=== PATIENT | male | born 1960 | race Caucasian/White ===

== ENCOUNTER 2021-05-22 09:47 | Emergency (ER) | payer OTHER, SELFPAY ==
[2021-05-22 09:58] VITALS: BP 132/87; PULSE 72; RESP 18; TEMP 36.6; O2SAT 100
--- NOTE | 2021-05-22 11:11 | ED.BACK ---
HPI - Back Pain/Injury General Chief Complaint: Extremity Injury, Lower Stated Complaint: Right Hip Pain Source: patient and RN notes reviewed Mode of arrival: ambulatory Limitations: no limitations History of Present Illness HPI Narrative: Patient presents today complaining of right buttock pain and right upper thigh pain x1 week. States pain is a dull ache that is worse with movement. Pain is usually worse in the morning and usually subsides by lunch time; today pain was worse, rates 6/10, and he was unable to tie his shoes due to pain. Patient denies any injury to area. 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 Denies loss of bowel or bladder control; denies numbness or tingling to his lower extremities. Patient states he has been taking Ibuprofen 800mg daily for last two days. Related Data Allergies Allergy/AdvReac Type Severity Reaction Status Date / Time Penicillins Allergy Unknown Unknown Verified 07/28/20 09:03 Review of Systems Review of Systems: CONSTITUTIONAL: Denies body aches, fever, chills, or sweats. EYES: Denies visual changes, redness, or discharge. ENT: Denies rhinorrhea, congestion, sore throat, or otalgia. CARDIOVASCULAR: Denies chest pain, palpitations, or edema. RESPIRATORY: Denies cough or dyspnea. GASTROINTESTINAL: Denies abdominal pain, nausea, vomiting, or diarrhea. GENITOURINARY: Denies dysuria or hematuria; Denies changes in bowel or bladder function. SKIN: Denies rash, itching, or wounds. MUSCULOSKELETAL: + right buttock and right thigh pain; NEUROLOGIC: Denies headache, denies weakness, numbness or tingling to extremities. PSYCH: Denies depression or anxiety. [facility] Past Medical History Medical History BMI 27.0-27.9,adult BMI 28.0-28.9,adult Family History Family History Father Brain aneurysm Meniere disease Mother No problems noted. Sibling No problems noted. Sibling , covid-19 No problems noted. Other Cerebrovascular accident Family history of coronary artery disease Social History Social History (Updated 07/28/20 @ 09:09 by Rina France CMA) Smoking packs per day: 1 Smoking cigarettes per day: 20.0 Years smoked: 30 Smoking pack-years: 30.00 Smoking status: Current every day smoker Tobacco type: cigarettes Second hand tobacco smoke exposure: No Alcohol intake: never Additional occupation/education comments: [employer] Gender identity (if verbalized by the patient): Male Comments At time of signature, I have reviewed and agree with nursing past medical, surgical, social and family history unless otherwise noted. Please see nursing chart for further information. There is no relevant family history pertinent to the presenting complaint. Exam Narrative: GENERAL: Well-appearing, well-nourished, and in no acute distress. HEAD: Normocephalic, atraumatic. EYES: EOMI. No redness or drainage. Conjunctivae normal. ENT: Mucous membranes pink and moist. NECK: Normal AROM. Supple. No lymphadenopathy. CHEST: No respiratory distress. MUSCULOSKELETAL: No vertebral point tenderness, Positive straight leg test with pain to right buttock EXTREMITIES: Positive straight leg test with pain to right buttock, distal sensation intact. Capillary refill normal. Full AROM of the right leg. SKIN: Warm, dry, no rash. Capillary refill normal. Normal skin turgor. NEURO: No focal deficits. Alert and oriented x3. Gait steady. PSYCH: Normal affect. No signs of depression or anxiety. Course Vital Signs Vital signs: Vital Signs Temperature 97.8 F 05/22/21 09:58 Pulse Rate 72 05/22/21 09:58 Respiratory Rate 18 05/22/21 09:58 Blood Pressure 132/87 05/22/21 09:58 Pulse Oximetry 100 05/22/21 09:58 Temperature 97.8 F 05/22/21 09:58 Pul
== END 2021-05-22 11:20 | disposition home or self-care (01) ==
PROVIDERS: Emergency Provider Nurse Practitioner; PCP Family Medicine
DX: M54.31 Sciatica, right side (principal); F17.210 Nicotine dependence, cigarettes, uncomplicated
CPT/HCPCS: 99213; G0463

== ENCOUNTER 2023-07-20 22:38 | Emergency (ER) | payer OTHER, SELFPAY ==
[2023-07-20] VITALS (13 sets, daily range): BP systolic 81–121; BP diastolic 66–75; PULSE 72–81; RESP 14–24; TEMP 36.6; O2SAT 93–100
--- NOTE | ~2023-07-20 | CT_ITS ---
EXAMINATION: CT cervical spine wo con DATE: 07/20/2023 23:53 INDICATION: Neck pain post syncopal episode with fall and head injury TECHNIQUE: Computed tomography (CT) of the cervical spine was performed without intravenous contrast. Automated exposure control and iterative reconstruction technique were employed. The dose-length pro duct was 100.67 mGy-cm. COMPARISON: None FINDINGS: Alignment is normal. Vertebral body heights are normal. No fracture. Moderate osteoarthritis at the a tlantoaxial articulation. There is solid osseous fusion across the bilateral C2-C3 facet and uncovert ebral joints. There is moderate disc height loss with severe bilateral uncovertebral osteoarthritis a t C5-C6. Posterior osteophytes at this level result in mild central canal stenosis. Remaining disc he ights are relatively preserved with additional uncovertebral osteoarthritis, moderate bilaterally at C3-C4 and mild bilaterally at C4-C5. There is severe facet osteoarthritis on the right at C3-C4, C4-C 5, C6-C7 and C7-T1 and on the right at C3-C4. Mild to moderate facet osteoarthritis at the remaining cervical levels. There is also moderate to severe with old bilateral facet osteoarthritis in the visu alized upper thoracic spine. Moderate neural foraminal stenosis bilaterally at C3-C4 and C5-C6 with m ild neural from stenosis at many of the remaining cervical levels. Very small amount of atherosclerot ic calcifications at the bilateral carotid bulbs. Cervical soft tissues are otherwise unremarkable. M ild emphysema and mild atelectasis at the bilateral apices of the lungs. IMPRESSION: 1. Moderate cervical spondylosis. No acute osseous abnormality. Reviewed, dictated and finalized at location A. DATA LEAD
--- NOTE | ~2023-07-20 | CT_ITS ---
EXAMINATION: CT brain wo con DATE: 07/20/2023 23:53 INDICATION: Syncopal episode with fall and head injury TECHNIQUE: Computed tomography (CT) of the head was performed without intravenous contrast. Sagittal and coronal reconstructions were performed. The mA was adjusted according to patient size. Iterative reconstruction technique was employed. The dose-length product was 681.00 mGy-cm. COMPARISON: Brain MR dated 05/10/2011 FINDINGS: No calvarial fracture. No acute intracranial hemorrhage, acute infarction or abnormal extra axial flu id collection. There is mild scattered white matter hypoattenuation consistent with chronic small ves marizol ischemic disease. Ventricles are normal and symmetric. No mass/mass effect. Mucosal thickening t he bilateral ethmoid and right maxillary sinuses. The orbits and mastoid air cells are normal. IMPRESSION: 1. No fracture or acute intracranial process. 2. Mild scattered white matter hypoattenuation consistent with chronic small vessel ischemic disease. Reviewed, dictated and finalized at location A. HER MACHINE OPERATOR IMPRESSION: 1. No fracture or acute intracranial process. 2. Mild scattered white matter hypoattenuation consistent with chronic small ve ssel ischemic disease.
--- NOTE | ~2023-07-20 | XR_ITS ---
EXAMINATION: XR chest 1V portable DATE: 07/21/2023 00:16 INDICATION: Syncope TECHNIQUE: frontal view of the chest was obtained. COMPARISON: Chest radiograph dated 09/04/2017 FINDINGS: Mild streaky bibasilar atelectasis. No pulmonary edema, pleural effusion or pneumothorax. The cardiom ediastinal silhouette is normal. Mild to moderate thoracic spondylosis IMPRESSION: 1. Mild bibasilar atelectasis. Reviewed, dictated and finalized at location A. NESS ACCOUNT SPECIALIST
--- NOTE | 2023-07-20 23:16 | ECG_ITS ---
Measurements Intervals [place] Rate: 75 P: 57 [place]: 149 QRS: 11 QRSD: 102 T: 29 QT: 388 QTc: 436 Interpretive Statements SINUS RHYTHM WITH SINUS ARRHYTHMIA NORMAL ECG NO PREVIOUS ECG AVAILABLE FOR COMPARISON Electronically Signed On 07-21-2023 11:53:50 JUDO TEACHER by Ayad Cazares M.D.
[2023-07-20] MEDS: TETANUS,DIPHTHERIA,AC PERTUSSIS ADULT (0.5 ML) BOOSTRIX IM (23:54)
[2023-07-20] MEDS: SODIUM CHLORIDE 0.9% IV 1,000 ML 999 ML IV CONT (23:54)
[2023-07-20 23:55] LABS: Basophils Percent Auto 0.3 % (0.2-1.2); Eosinophils Absolute Auto 0.2 K/mm3 (0-0.3); Eosinophils Percent Auto 2.9 % (0-4.4); Hematocrit 34.6 % (42.0-52.0); Hemoglobin 11.2 g/dL (14.0-18.0); Immature Granulocyte Absolute 0.01 K/mm3 (0.00-0.031); Immature Granulocyte Percent A 0.2 % (0-0.5); Immature Platelet Fraction Pct 5.2 % (0.9-11.2); Lymphocytes Absolute Auto 1.52 K/mm3 (0.9-3.2); Lymphocytes Percent Auto 26.1 % (18.3-44.2); Mean Corpuscular HGB Conc 32.4 g/dl (32-36); Mean Corpuscular Hemoglobin 32.8 pg (26-34); Mean Corpuscular Volume 101.5 fl (80-100); Monocytes Absolute Auto 0.4 K/mm3 (0.1-0.6); Monocytes Percent Auto 6.2 % (2.6-8.5); Neutrophils Absolute Auto 3.7 K/mm3 (1.3-6.7); Neutrophils Percent Auto 64.3 % (45.5-73.1); Platelet Count Result 140 k/mm3 (150-375); Red Blood Count 3.41 M/mm3 (4.6-6.20); Red Cell Distribution Width 12.6 % (11.5-14.5); White Blood Count 5.8 K/mm3 (4.5-10.0)
[2023-07-21] VITALS (8 sets, daily range): BP systolic 127–135; BP diastolic 81–85; PULSE 68–74; RESP 14–18; O2SAT 94–98
[2023-07-21 00:05] LABS: Alanine Aminotransferase 15 U/L (6-50); Albumin Level 3.7 g/dL (3.5-5.1); Alkaline Phosphatase 69 U/L (38-126); Anion Gap 8 mmol/L (8-16); Aspartate Amino Transferase 22 U/L (17-59); Bilirubin,Total 0.4 mg/dL (0.2-1.3); Blood Urea Nitrogen 14 mg/dL (9-20); Calcium 8.4 mg/dL (8.4-10.2); Carbon Dioxide 24 mmol/L (22-30); Chloride 107 mmol/L (98-107); Estimated CRCL calculation 83 ml/min; Estimated Glomerular Filt Rate > 60; Glucose 127 mg/dL (65-110); Magnesium 1.8 mg/dL (1.6-2.3); Potassium 3.7 mmol/L (3.4-5.0); Sodium 139 mmol/L (137-145)
[2023-07-21 00:06] LABS: Lactic Acid Reflex 1.1 mmol/L (0.7-2.0)
[2023-07-21 00:12] LABS: INR 1.2; Prothrombin Time 15.7 Seconds (11.1-14.7)
[2023-07-21 00:13] LABS: Partial Thromboplastin Time 26.8 SECONDS (22.3-36.8)
[2023-07-21 00:17] LABS: Troponin I < 0.012 ng/mL (0.000-0.034)
--- NOTE | 2023-07-21 01:40 | ED.GENADULT ---
HPI - General Adult General Chief complaint: Fall Stated complaint: FALL, LAC TO HEAD Time Seen by Provider: 07/20/23 22:51 History of Present Illness HPI narrative: sees a 61-year-old gentleman who presents to the emergency department with chief complaint of head injury. Patient reports that he was at a [employer] and had not eaten all day and reports that he got up was feeling lightheaded fell struck his head and has a cut on the back of his head. The patient states he feels achy and feels tired. Patient reports no pain his extremities denies nausea vomiting the patient reports he is unsure of his last tetanus status Related Data Allergies Allergy/AdvReac Type Severity Reaction Status Date / Time Penicillins Allergy Unknown Unknown Verified 06/20/23 14:37 chocolate flavor Allergy Vomiting Verified 07/20/23 22:47 Review of Systems Review of Systems: A 10 system review of systems was completed on the patient and is negative except for what is stated in the HPI. Nursing and ancillary documentation was reviewed. [facility] Past Medical History Medical History BMI 27.0-27.9,adult BMI 28.0-28.9,adult Surgical History Surgical History History of carpal tunnel release Family History Family History Father Brain aneurysm Meniere disease Mother Sibling No problems noted. Sibling , covid-19 No problems noted. Other Cerebrovascular accident Family history of coronary artery disease Social History Social History Smoking packs per day: 1 Smoking cigarettes per day: 20.0 Years smoked: 30 Smoking pack-years: 30.00 Smoking status: Current every day smoker Tobacco type: cigarettes Second hand tobacco smoke exposure: Yes Alcohol intake: never Substance use: current Substance use type: marijuana Lack of Transportation: No Lack of Food: Never True Current Housing: I Have Housing Concerned About Future Housing: No Difficulty Paying Gas/Electric Bills: No Difficulty Paying for Meds: No Education: High School Diploma/GED Difficulty w/ Childcare or Family Care: No Living arrangements: with family Additional living arrangements comments: Occupation/Education: occupation Additional occupation/education comments: [employer] Gender identity (if verbalized by the patient): Male Sexual Orientation (if Verbalized by the Patient): Straight or Heterosexual Spiritual care concerns: No Agree to blood products: Yes Exam Narrative: GENERAL: Well-appearing, well-nourished, and in no acute distress. HEAD: Normocephalic, there is a laceration on the back scalp 2 cm in length. EYES: PERRLA and EOMI. ENT: Nares clear, no rhinorrhea or epistaxis. Mucous membranes moist. NECK: Supple. CHEST: Clear to auscultation. No respiratory distress. HEART: Regular rate and rhythm. No murmur heard. Normal peripheral pulses. ABDOMEN: Soft, nontender, nondistended, normal active bowel sounds. EXTREMITIES: Normal range of motion. No edema. SKIN: Warm, dry, no rash. NEURO: No focal deficits. Alert and oriented x3. PSYCH: Normal mood and affect. Course Vital Signs Vital signs: Vital Signs Temperature 36.6 C 07/20/23 22:37 Pulse Rate 77 07/20/23 22:37 Respiratory Rate 17 07/20/23 22:37 Blood Pressure 99/66 L 07/20/23 22:37 Pulse Oximetry 95 07/20/23 22:37 Oxygen Delivery Room Air 07/20/23 22:37 Temperature 36.6 C 07/20/23 22:37 Pulse Rate 74 07/21/23 01:00 Respiratory Rate 15 07/21/23 01:00 Blood Pressure 127/81 07/21/23 00:46 Pulse Oximetry 94 07/21/23 01:00 Oxygen Delivery Room Air 07/20/23 22:37 Procedures Laceratio
== END 2023-07-21 02:11 | disposition home or self-care (01) ==
PROVIDERS: Emergency Provider Emergency Medicine; PCP Family Medicine
DX: S01.01XA Laceration without foreign body of scalp, initial encounter (principal); R55 Syncope and collapse; Z23 Encounter for immunization; F17.210 Nicotine dependence, cigarettes, uncomplicated; M47.812 Spondylosis without myelopathy or radiculopathy, cervical region; W18.39XA Other fall on same level, initial encounter
CPT/HCPCS: 12001; 36415; 70450; 71045; 72125; 80053; 83605; 83735; 84484; 85025; 85055; 85610; 85730; 90471; 90715; 93005; 96360; 99284; J7030

== ENCOUNTER 2023-08-22 07:00 | Outpatient (NON) | payer OTHER, SELFPAY | END 2023-08-22 07:01 | disposition home or self-care (01) | PROVIDERS: PCP Family Medicine; Visit Provider Internal Medicine Gastroenterology | DX: D12.2 Benign neoplasm of ascending colon (principal); Z86.010 Personal history of colon polyps | CPT/HCPCS: 88305 ==

== ENCOUNTER 2023-08-22 08:16 | Day surgery (SDC) | payer OTHER, SELFPAY ==
[2023-08-05 13:13] VITALS: BMI 27.3
[2023-08-05 14:36] VITALS: BMI 27.6
--- NOTE | 2023-08-22 07:56 | WPDANESEPPF ---
Anes - Initial Pre Proc Eval Procedure: Operation Date: 08/22/23 10:30 Proposed Procedures p Diagnostic Colonoscopy - Chi Toth MD Date/Time: 08/22/23 07:56 Surgeon: Chi Toth MD Pre Op Diagnosis: Melena Patient Data Age: 63 Gender: M Height: 1.75 m Weight: 85 kg Allergies Allergy/AdvReac Type Severity Reaction Status Date / Time chocolate flavor Allergy Severe Hives Verified 08/22/23 09:04 Penicillins Allergy Severe Hives Verified 08/22/23 09:04 Home Medications Medication Instructions Recorded Confirmed Type rosuvastatin 20 mg tablet See Rx Instructions .Route 07/25/23 08/22/23 Rx .COMPLEX #90 tabs sildenafil 50 mg tablet 50 mg PO DAILY PRN sexual activity 07/25/23 08/05/23 Rx #9 tabs Patient hx anesthesia problems: none Family hx anesthesia problems: none Results Review: All pre-operative results and documents have been reviewed as part of the pre-operative evaluation. [facility] Past Medical History Medical History (Updated 08/22/23 @ 07:58 by Bandar Santos DO) BMI 27.0-27.9,adult BMI 28.0-28.9,adult Hyperlipidemia Surgical History Surgical History History of carpal tunnel release Family History Family History Father Brain aneurysm Meniere disease Mother Sibling No problems noted. Sibling , covid-19 No problems noted. Other Cerebrovascular accident Family history of coronary artery disease Social History Social History (Updated 08/22/23 @ 09:30 by Bandar Santos DO) Smoking packs per day: 2 Smoking cigarettes per day: 40.0 Years smoked: 50 Smoking pack-years: 100.00 Smoking status: Current every day smoker Tobacco type: cigarettes Second hand tobacco smoke exposure: Yes Alcohol intake: never Substance use: current Substance use type: marijuana Other substance usage details: daily Lack of Transportation: No Lack of Food: Never True Current Housing: I Have Housing Concerned About Future Housing: No Difficulty Paying Gas/Electric Bills: No Difficulty Paying for Meds: No Education: High School Diploma/GED Difficulty w/ Childcare or Family Care: No Living arrangements: with family Additional living arrangements comments: Occupation/Education: occupation Additional occupation/education comments: holder Gender identity (if verbalized by the patient): Male Sexual Orientation (if Verbalized by the Patient): Straight or Heterosexual Spiritual care concerns: No Agree to blood products: Yes Anes - Eval Final PreProcedure Day of Procedure 08/22/23 07:56 Patient weight: overweight Heart: regular rate and rhythm Lungs: clear to auscultation Airway: Mallampati scale class II Neurological: alert and oriented Last oral intake: >/= 8 hours ASA classification: III Emergent: no Anesthetic plan: proceed Anesthesia type and monitoring: general GIVS and standard monitoring Results Review: All pre-operative results and documents have been reviewed as part of the pre-operative evaluation. Informed Consent: The patient's anesthetic plan and its attendant risks and benefits were discussed with the patient/family/POA. Questions were solicited and answers provided to the satisfaction of the patient/family/POA.
[2023-08-22 09:12] VITALS: BP 129/87; PULSE 78; RESP 16; TEMP 37.2; O2SAT 99; BMI 26.2
[2023-08-22] MEDS: LACTATED RINGERS 1,000 ML 150 ML IV CONT (09:24)
--- NOTE | 2023-08-22 10:10 | PM.HPGS ---
History of Present Illness History of Present Illness Consent: Risks, benefits, and alternatives have been discussed and questions answered. Patient agrees to proceed with procedure. Chief complaint: Occult blood in stool Narrative: Chi Starr is a 63 year old male presents for colonoscopy. Patient reports that he initially scraped his head. He had some bleeding. Upon presenting to the medical this was found to have mild anemia and occult blood in stool. Patient's past medical history is significant for a sessile serrated adenomatous polyp removed from the colon in 2019. Patient denies any obvious active bleeding. He denies abdominal pain. Patient presents today for follow-up colonoscopy. Recent hemoglobin 11 hematocrit 34. Review of Systems Review of Systems: Review of systems noncontributory. [facility] Past Medical History Medical History (Updated 08/22/23 @ 10:12 by Chi Toth MD) BMI 27.0-27.9,adult BMI 28.0-28.9,adult Hyperlipidemia Surgical History Surgical History History of carpal tunnel release Family History Family History Father Brain aneurysm Meniere disease Mother Sibling No problems noted. Sibling , covid-19 No problems noted. Other Cerebrovascular accident Family history of coronary artery disease Social History Social History (Updated 08/22/23 @ 09:30 by Bandar Santos DO) Smoking packs per day: 2 Smoking cigarettes per day: 40.0 Years smoked: 50 Smoking pack-years: 100.00 Smoking status: Current every day smoker Tobacco type: cigarettes Second hand tobacco smoke exposure: Yes Alcohol intake: never Substance use: current Substance use type: marijuana Other substance usage details: daily Lack of Transportation: No Lack of Food: Never True Current Housing: I Have Housing Concerned About Future Housing: No Difficulty Paying Gas/Electric Bills: No Difficulty Paying for Meds: No Education: High School Diploma/GED Difficulty w/ Childcare or Family Care: No Living arrangements: with family Additional living arrangements comments: Occupation/Education: occupation Additional occupation/education comments: holder Gender identity (if verbalized by the patient): Male Sexual Orientation (if Verbalized by the Patient): Straight or Heterosexual Spiritual care concerns: No Agree to blood products: Yes Meds Home Medications and Allergies Home Medications Medication Instructions Recorded Confirmed Type rosuvastatin 20 mg tablet See Rx Instructions .Route 07/25/23 08/22/23 Rx .COMPLEX #90 tabs sildenafil 50 mg tablet 50 mg PO DAILY PRN sexual activity 07/25/23 08/05/23 Rx #9 tabs Allergies Allergy/AdvReac Type Severity Reaction Status Date / Time chocolate flavor Allergy Severe Hives Verified 08/22/23 09:04 Penicillins Allergy Severe Hives Verified 08/22/23 09:04 Vital Signs Vital Signs - 24 hr 08/22/23 09:12 Temperature 98.9 F Pulse Rate 78 Respiratory Rate 16 Blood Pressure 129/87 Pulse Oximetry 99 Oxygen Delivery Room Air Exam Narrative: Physical exam reveals patient to be alert. Vital signs stable. HEENT exam is unremarkable. Patient is anicteric. Is are clear to auscultation and percussion. Heart is without murmur or extra sounds. Abdomen bowel sounds are present soft nontender with no organomegaly. Digital external rectal exam normal. Assessment and Plan Assessment and plan (1) Blood in stool: Code(s): K92.1 - Melena Status: Acute Assessment and Plan: Patient reports occult blood in stool. He denies any obvious blood in his stool. Colonoscopy requested will be performed. (2) Anemia: Qualifiers: Anemia type: unspecified type Qualified Code(s): D6
[2023-08-22 11:07] VITALS: BP 127/74; PULSE 85; RESP 16; O2SAT 98
[2023-08-22 11:20] VITALS: BP 113/74; PULSE 71; RESP 16; O2SAT 99
[2023-08-22 11:30] VITALS: BP 127/65; PULSE 71; RESP 16; O2SAT 100
--- NOTE | 2023-08-22 11:39 | WPDANESPN ---
Anes - Prog Note Post-Op Date/Time: 08/22/23 11:39 Cardiovascular status: normal Respiratory status: normal Airway patency: baseline Mental status: baseline Post-Op hydration status: normal Vital Signs: Last Vital Signs Temp 37.2 C 08/22/23 09:12 Pulse 71 08/22/23 11:30 Resp 16 08/22/23 11:30 BP 127/65 08/22/23 11:30 Pulse Ox 100 08/22/23 11:30 O2 Del Method Room Air 08/22/23 11:30 Pain Score (VAS): 0 I/O: Intake & Output 08/21/23 08/22/23 08/22/23 23:59 07:59 15:59 Intake Total 600 Balance 600 Post-procedural complaints: none Patient Feedback: Patient satisfied with anesthetic care. Other Findings: Patient vital signs back to baseline. Patient denies nausea and vomiting. Patient's pain under control. Patient OK for discharge.
== END 2023-08-22 11:41 | disposition home or self-care (01) ==
PROVIDERS: PCP Family Medicine; Visit Provider Internal Medicine Gastroenterology
PROC: 0DJD8ZZ Inspection of Lower Intestinal Tract, Via Natural or Artificial Opening Endoscopic (ICD-10-PCS; CPT 45378; principal; 2023-08-22 10:30)
DX: Z86.010 Personal history of colon polyps (principal); D12.2 Benign neoplasm of ascending colon; K57.30 Diverticulosis of large intestine without perforation or abscess without bleeding; K64.8 Other hemorrhoids
CPT/HCPCS: 45385

== ENCOUNTER 2024-07-03 23:42 | Emergency (ER) | payer OTHER, SELFPAY ==
--- NOTE | ~2024-07-03 | XR_ITS ---
EXAMINATION: XR chest 1V portable DATE: 07/04/2024 00:38 INDICATION: Weakness. TECHNIQUE: A single frontal view of the chest was obtained. COMPARISON: Chest single view 07/21/2023 FINDINGS: There are mild airspace opacities in all lung zones bilaterally. No pleural effusion or pne umothorax. The heart size is normal. IMPRESSION: 1. Diffuse lung disease, consistent with pulmonary edema versus pneumonia. Reviewed, dictated and finalized at location A. ROLLER INSTRUCTOR
[2024-07-03 23:40] VITALS: BP 117/58; PULSE 69; RESP 19; O2SAT 97
[2024-07-03 23:48] VITALS: PULSE 66; RESP 21
--- NOTE | 2024-07-03 23:51 | ECG_ITS ---
Test Date: 2024-07-03 23:44:50 Measurements Intervals [place] Rate: 70 P: 64 MA: 173 QRS: 42 QRSD: 105 T: 58 QT: 397 QTc: 430 Interpretive Statements SINUS RHYTHM WITH OCCASIONAL VENTRICULAR PREMATURE COMPLEXES BASELINE ARTIFACT- V1 BORDERLINE ECG No previous ECG available for comparison Electronically Signed On 07-04-2024 06:08:33 MAIL AGENT by Vaibhav Alberto D.O.
[2024-07-03 23:57] LABS: Basophils Absolute Auto 0.1 K/mm3 (0.0-0.1); Basophils Percent Auto 0.3 % (0.2-1.2); Eosinophils Absolute Auto 0.2 K/mm3 (0-0.3); Eosinophils Percent Auto 1.4 % (0-4.4); Hematocrit 35.6 % (42.0-52.0); Immature Granulocyte Absolute 0.06 K/mm3 (0.00-0.031); Immature Granulocyte Percent A 0.4 % (0-0.5); Lymphocytes Percent Auto 21.3 % (18.3-44.2); Mean Corpuscular HGB Conc 33.7 g/dl (32-36); Mean Corpuscular Volume 100.8 fl (80-100); Mean Platelet Volume 10.2 fl (7.4-10.4); Monocytes Absolute Auto 0.6 K/mm3 (0.1-0.6); Neutrophils Absolute Auto 11.6 K/mm3 (1.3-6.7); Neutrophils Percent Auto 72.6 % (45.5-73.1); Platelet Count Result 148 k/mm3 (150-375); Red Blood Count 3.53 M/mm3 (4.6-6.20)
[2024-07-04] VITALS (23 sets, daily range): BP systolic 111–137; BP diastolic 67–79; PULSE 71–83; RESP 15–22; O2SAT 92–100
[2024-07-04 00:30] LABS: Alanine Aminotransferase 29 U/L (6-50); Albumin Level 4.2 g/dL (3.5-5.1); Alkaline Phosphatase 66 U/L (38-126); Anion Gap 8 mmol/L (4-12); Aspartate Amino Transferase 30 U/L (17-59); Bilirubin,Total 0.4 mg/dL (0.2-1.3); Blood Urea Nitrogen 16 mg/dL (9-20); Calcium 8.8 mg/dL (8.4-10.2); Carbon Dioxide 27 mmol/L (22-30); Chloride 101 mmol/L (98-107); Estimated CRCL calculation 56 ml/min; Estimated Glomerular Filt Rate > 60; Glucose 137 mg/dL (65-110); Potassium 3.8 mmol/L (3.4-5.0); Sodium 136 mmol/L (137-145)
[2024-07-04] MEDS: SODIUM CHLORIDE 0.9% IV 1,000 ML 999 ML IV CONT ×2 (00:45→02:06)
--- NOTE | 2024-07-04 01:26 | PC.NURSE ---
pt has been accepted at [facility], however they state they do not have the staff to take him until evening shift on 07/04/24. [facility] would like us to call back at 1400 on 07/04 to reassess. [email or web address] Roblero has other calls placed to facilities to see if somewhere else can take him sooner.
[2024-07-04 01:28] LABS: Creatine Kinase 63 U/L (55-170); Magnesium 1.7 mg/dL (1.6-2.3)
[2024-07-04 01:56] LABS: Add Urine Microscopic? YES; Appearance Urine Clear (Clear); Bacteria Urine None Seen /hpf; Bilirubin Urine Negative (Negative); Blood Urine Negative (Negative); Color Urine Yellow (Yellow); Glucose Urine UA Negative (Negative); Ketones Urine Negative (Negative); Leukocyte Esterase Ur Negative LEU/UL (Negative); Nitrate Urine Negative (Negative); Protein Urine 1+ mg/dL (Negative); RBC Urine 0-2 /hpf (0-2); Specific Grav Ur 1.018 (1.001-1.035); Squamous Epithelial Cell Urine None Seen /hpf (Few); Urobilinogen Urine 0.2 mg/dL (<2.0); WBC Urine 0-5 /hpf (0-3)
[2024-07-04] MEDS: MAGNESIUM SULF 2 GM/WATER 50ML 2 GM/50 ML BAG IVPB (02:06)
--- NOTE | 2024-07-04 03:21 | ED.GENADULT ---
HPI - General Adult General Chief complaint: Weakness Stated complaint: dizziness, hypotension Time Seen by Provider: 07/04/24 00:05 History of Present Illness HPI narrative: patient is 64-year-old gentleman who presents emergency department chief complaint of feeling weak. The patient has prior history of dehydration and reports that tonight he started feeling very weak the patient's blood pressure was low whenever EMS arrived and was given IV fluids by EMS. Patient has prior history of getting dehydrated after he has consumed a fair amount of carbonated beverages. Related Data Allergies Allergy/AdvReac Type Severity Reaction Status Date / Time chocolate flavor Allergy Severe Hives Verified 08/22/23 09:04 Penicillins Allergy Severe Hives Verified 08/22/23 09:04 Review of Systems Review of Systems: A 10 system review of systems was completed on the patient and is negative except for what is stated in the HPI. Nursing and ancillary documentation was reviewed. [facility] Past Medical History Medical History BMI 27.0-27.9,adult BMI 28.0-28.9,adult Hyperlipidemia Surgical History Surgical History History of carpal tunnel release Family History Family History Father Brain aneurysm Meniere disease Mother Sibling No problems noted. Sibling , covid-19 No problems noted. Other Cerebrovascular accident Family history of coronary artery disease Social History Social History Smoking packs per day: 2 Smoking cigarettes per day: 40.0 Years smoked: 50 Smoking pack-years: 100.00 Smoking status: Current every day smoker Tobacco type: cigarettes Second hand tobacco smoke exposure: Yes Alcohol intake: never Substance use: current Substance use type: marijuana Other substance usage details: daily Lack of Transportation: No Lack of Food: Never True Current Housing: I Have Housing Concerned About Future Housing: No Difficulty Paying Gas/Electric Bills: No Difficulty Paying for Meds: No Education: High School Diploma/GED Difficulty w/ Childcare or Family Care: No Living arrangements: with family Additional living arrangements comments: Occupation/Education: occupation Additional occupation/education comments: [employer] Gender identity (if verbalized by the patient): Male Sexual Orientation (if Verbalized by the Patient): Straight or Heterosexual Spiritual care concerns: No Agree to blood products: Yes Exam Narrative: GENERAL: Well-appearing, well-nourished, and in no acute distress. HEAD: Normocephalic, atraumatic. EYES: PERRLA and EOMI. ENT: Nares clear, no rhinorrhea or epistaxis. Mucous membranes moist. NECK: Supple. CHEST: Clear to auscultation. No respiratory distress. HEART: Regular rate and rhythm. No murmur heard. Normal peripheral pulses. ABDOMEN: Soft, nontender, nondistended, normal active bowel sounds. EXTREMITIES: Normal range of motion. No edema. SKIN: Warm, dry, no rash. NEURO: No focal deficits. Alert and oriented x3. PSYCH: Normal mood and affect. Course Vital Signs Vital signs: Vital Signs Pulse Rate 69 07/03/24 23:40 Respiratory Rate 19 07/03/24 23:40 Blood Pressure 117/58 L 07/03/24 23:40 Pulse Oximetry 97 07/03/24 23:40 Oxygen Delivery Room Air 07/03/24 23:40 Pulse Rate 79 07/04/24 03:15 Respiratory Rate 18 07/04/24 03:15 Blood Pressure 137/77 07/04/24 03:01 Pulse Oximetry 92 07/04/24 03:15 Oxygen Delivery Room Air 07/03/24 23:40 Medical Decision Making [facility] Narrative Medical decision making narrative: Differential diagnosis includes dehydration, electrolyte abnormality, anemia, infection EKG showed no acute ischemic changes chest x-ray showed no focal findings urinalysis showed no evidence UTI electrolytes showed normal renal function magnesium was 1.7 potassium was 3.8 CBC showed white count of 16 hemoglobin was 12.0 the patient received IV fluids and magnesium replacement in the emergency department and is feeling much better at this time Vital Signs Vital Signs: Vital Signs Pulse Rate 69 07/03/24 23:40 Respiratory Rate 19 07/03/24 23:40 Blood Pressure 117/58 L 07/03/24 23:40 Pulse Oximetry 97 07/03/24 23:40 Oxygen Delivery Room Air 07/03/24 23:40 Pulse Rate 79 07/04/24 03:15 Respiratory Rate 18 07/04/24 03:15 Blood Pressure 137/77 07/04/24 03:01 Pulse Oximetry 92 07/04/24 03:15 Oxygen Delivery Room Air 07/03/24 23:40 Lab Data 07/03/24 23:52 07/03/24 23:52 Labs: Lab Results 07/03/24 07/04/24 Range/Units 23:52 01:45 WBC 16.0 H (4.5-10.0) K/mm3 RBC 3.53 L (4.6-6.20) M/mm3 Hgb 12.0 L (14.0-18.0) g/dL Hct 35.6 L (42.0-52.0) % MCV 100.8 H (80-100) fl MCH 34.0 (26-34) pg MCHC 33.7 (32-36) g/dl RDW 13.0 (11.5-14.5) % Plt Count 148 L (150-375) k/mm3 MPV 10.2 (7.4-10.4) fl Immature Gran % (Auto) 0.4 (0-0.5) % Neut % (Auto) 72.6 (45.5-73.1) % Lymph % (Auto) 21.3 (18.3-44.2) % Crane % (Auto) 4.0 (2.6-8.5) % Eos % (Auto) 1.4 (0-4.4) % Baso % (Auto) 0.3 (0.2-1.2) % Lymph # (Auto) 3.40 H (0.9-3.2) K/mm3 Crane # (Auto) 0.6 (0.1-0.6) K/mm3 Eos # (Auto) 0.2 (0-0.3) K/mm3 Baso # (Auto) 0.1 (0.0-0.1) K/mm3 Abs Immat Gran (auto) 0.06 H (0.00-0.031) K/mm3 Absolute Neuts (auto) 11.6 H (1.3-6.7) K/mm3 Absolute Nucleated RBC 0.000 (0.0-0.012) K/mm3 Nucleated RBC % 0.0 (0.0-0.2) % Sodium 136 L (137-145) mmol/L Potassium 3.8 (3.4-5.0) mmol/L Chloride 101 (98-107) mmol/L Carbon Dioxide 27 (22-30) mmol/L Anion Gap 8 (4-12) mmol/L BUN 16 (9-20) mg/dL Creatinine 1.20 (0.7-1.3) mg/dL Estim Creat Clear Calc 56 ml/min Estimated GFR > 60 (59 - ) Glucose 137 H (65-110) mg/dL Calcium 8.8 (8.4-10.2) mg/dL Magnesium 1.7 (1.6-2.3) mg/dL Total Bilirubin 0.4 (0.2-1.3) mg/dL AST 30 (17-59) U/L ALT 29 (6-50) U/L Alkaline Phosphatase 66 (38-126) U/L Total Creatine Kinase 63 (55-170) U/L Total Protein 9.0 H (6.3-8.2) g/dL Albumin 4.2 (3.5-5.1) g/dL Urine Color Yellow (Yellow) Urine Appearance Clear (Clear) Urine pH 6.0 (5.0-9.0) Ur Specific [place] 1.018 (1.001-1.035) Urine Protein 1+ H (Negative) mg/dL Urine Glucose (UA) Negative (Negative) mg/dL Urine Ketones Negative (Negative) mg/dL Ur Blood (Man) Negative (Negative) Urine Nitrate Negative (Negative) Urine Bilirubin Negative (Negative) Urine Urobilinogen 0.2 (<2.0) mg/dL Leukocyte Esterase Rfl Negative (Negative) KJ/UL Urine RBC 0-2 (0-2) /hpf Urine WBC 0-5 (0-3) /hpf Ur Squamous Epith Cells None seen (Few) /hpf Urine Bacteria None seen /hpf Urine Casts 3-5 Discharge Plan Discharge Clinical Impression: Near syncope, Hypomagnesemia Patient Disposition: Home, Self-Care Condition: Stable Instructions: Antibiotic Form, Near Syncope (ED) Prescriptions: No Action rosuvastatin 20 mg tablet See Rx Instructions .ROUTE .COMPLEX Qty: 90 3RF Dose Instruction: TAKE 1 TABLET BY MOUTH EVERY DAY Rx Instructions: TAKE 1 TABLET BY MOUTH EVERY DAY sildenafil 50 mg tablet See Rx Instructions .ROUTE .COMPLEX Qty: 9 2RF Dose Instruction: TAKE ONE TABLET BY MOUTH DAILY NEEDED, 30 MINUTES TO 4 HOURS BEFORE ACTIVITY Rx Instructions: TAKE ONE TABLET BY MOUTH DAILY NEEDED, 30 MINUTES TO 4 HOURS BEFORE ACTIVITY Follow-up/Referrals: Mikel Pavon MD [Primary Care Provider] - Time of Disposition: 03:25
--- NOTE | 2024-07-04 03:23 | PC.NURSE ---
pt walked well without assistance per ambulation order by MD Yancey. aware of patient's ambulation status
== END 2024-07-04 03:59 | disposition home or self-care (01) ==
PROVIDERS: Emergency Provider Emergency Medicine; PCP Family Medicine
DX: R55 Syncope and collapse (principal); E83.42 Hypomagnesemia; E78.5 Hyperlipidemia, unspecified; F17.210 Nicotine dependence, cigarettes, uncomplicated; I49.3 Ventricular premature depolarization
CPT/HCPCS: 36415; 71045; 80053; 81001; 82550; 83735; 85025; 93005; 96361; 96365; 99284; J3475; J7030

== ENCOUNTER 2024-07-08 09:13 | Outpatient (CLI) | payer OTHER, SELFPAY ==
--- NOTE | ~2024-07-08 | XR_ITS ---
Clinical Indication: Abnormal findings on diagnostic imaging PA and lateral views of the chest: Comparison: 07/04/2024 Findings: The lungs are clear, without evidence of focal consolidation or pleural effusion. Cardiome diastinal silhouette is within normal limits. Bones and soft tissues are unremarkable. Impression: Normal chest. Reviewed, dictated and finalized at [facility]. ASSEMBLY UTILITY WORKER Impression: Normal chest.
== END 2024-07-08 09:14 | disposition home or self-care (01) ==
LOC: MICIMG 09:14
PROVIDERS: PCP Family Medicine; Visit Provider Nurse Practitioner Adult Health
DX: R93.89 Abnormal findings on diagnostic imaging of other specified body structures (principal)
CPT/HCPCS: 71046

== ENCOUNTER 2024-11-20 09:43 | Emergency (ER) | payer OTHER, SELFPAY ==
[2024-11-20] VITALS (10 sets, daily range): BP systolic 114–138; BP diastolic 68–99; PULSE 68–78; RESP 12–20; TEMP 36.6–36.7; O2SAT 95–100
--- NOTE | ~2024-11-20 | CT_ITS ---
CT ANGIOGRAM NECK AND HEAD History: Headache, family history of aneurysm. Technique: Axial noncontrast imaging of the brain was performed. Serial spiral axial images through t he head and neck were then obtained during arterial phase IV injection of 100 cc of Omnipaque 350. 3- D postprocessing and MIP images were then reconstructed on the remote workstation. Dose reduction tamanna hnique was used on this scan by utilizing automated exposure control and iterative reconstruction tamanna hnique. The dose-length product (DLP) was 1681.10 mGy-cm. COMPARISON: 07/20/2023 CTA neck findings: Bilateral vertebral arteries are patent. Bilateral common carotid, internal carot id, and external carotid arteries are patent. No large vessel occlusion or significant stenosis. No a neurysm. The proximal right internal carotid artery demonstrates 0% stenosis relative to the normal d istal artery lumen diameter. The proximal left internal carotid artery demonstrates 0% stenosis relat [place] to the normal distal artery lumen diameter. CTA head findings: Distal vertebral arteries, basilar artery, and posterior cerebral arteries are pat ent. Distal internal carotid arteries, middle cerebral arteries, and anterior cerebral arteries are p atent. No large vessel occlusion or stenosis. No aneurysm. Axial noncontrast imaging of the brain is unremarkable. No acute infarct, internal hemorrhage, or mas s lesion identified. No mass effect or midline shift. Schmidt-white differentiation intact. The ventricl es and subarachnoid spaces are unremarkable. Paranasal sinuses and mastoid air cells are essentially clear. Calvarium intact. Impression: No significant abnormality. Reviewed, dictated and finalized at location . Impression: No significant abnormality.
--- OUTSIDE RECORDS SUMMARY | 2024-11-20 09:56 | XMS_ITS | Clinical Summary ---
Author Organization [facility] Address [address] [place] [address] Care Team Providers Care Pit Shovel Operator Name Role Phone Unavailable Primary Care Provider Unavailabl e Social History Tobacco Use Types Packs/Day Years Used Date Smoking Tobacco: Never Assessed Sex and Gender Information Value Date Recorded Sex Assigned at Not on file Legal Sex Male 1:49 PM CDT Gender Identity Not on file Sexual Orientation Not on file Plan of Treatment Health Maintenance Due Date Last Done Comments Hepatitis C Virus (HCV) Screening 1961 TdaP Immunization 1961 Hepatitis B Immunization (2 of 3 - 19+ 3-dose series) 03/20/2000 02/21/2000 Colonoscopy 2006 Colorectal Cancer Screening 2006 Cologuard 2011 Immunochemical Fecal Occult Blood 2011 Pneumococcal Immunization (5 0+ years) (1 of 1 - PCV) 2011 Zoster Immunization (1 of 2) 2011 PSA Discussion 01/10/2016 Influenza Immunization (#1) 2024 SARS-COV-2 Immunization ( - season) 2024 Respiratory Syncytial Virus (RSV) Immunization (Adult) (1 - 1-dose 75+ series) 01/10/2036 Meningococcal Immunization (ACWY) Aged Out No longer eligible based on patient's age to complete this topic Pneumococcal Immunization Combined Aged Out No longer eligible based on patient's age to complete this topic Rotavirus Immunization Aged Out No lo nger eligible based on patient's age to complete this topic
--- OUTSIDE RECORDS SUMMARY | 2024-11-20 09:56 | XMS_ITS | Referral Summary ---
Author Organization [facility] Address [address] [place] [address] Care Team Providers Care Computer Networker Name Role Phone Mikel Pavon MD Primary Care Provider [phone] Allergies Active Allergy Reactions Criticality Noted Date Comments Penicillins Rash,Stomach upset Medium 12/07/2020 Medications rosuvastatin (CRESTOR) 20 mg tablet Take 20 mg by mouth daily Active ibuprofen (ibuprofen) 200 mg tab/cap Take 400 mg by mouth every 6 (six) hours as needed for pain Active HYDROcodone-acet aminophen (NORCO) 5-325 mg per tabletIndication s:Pain,dx: post op pain Take 1 tablet by mouth every 6 (six) hours as needed for pain 45 tablet 03/20/2021 Active Active Problems Problem Noted Date Diagnosed Date Carpal tunnel syndrome, bilateral 12/07/2020 Trigger index finger of left hand 12/07/2020 Social History Tobacco Use Types Packs/Day Years Used Date Smoking Tobacco: Every Day Cigarettes 1.5 52 Smokeless Tobacco: Never Tobacco Cessation:Ready to Q uit: No AUDIT-C Answer Date Recorded Q1: How often do you have a drink containing alc ohol? 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 Gender Identity Not on file Sexual Orientation Not on file Last Filed Vital Signs Vital Sign Reading Time Taken Comments Blood Pressure 114/77 03/21/2021 10:12 AM CDT Pulse 56 03/21/2021 10:12 AM CDT Temperature 36.1 C (96.9 F) 03/21/2021 9:42 AM CDT Respiratory Rate 16 03/21/2021 10:12 AM CDT Oxygen Saturation 98% 03/21/2021 10:12 AM CDT Inhaled Oxygen Concentration - - Weight 84 kg (185 lb 3.2 oz) 03/21/2021 6:32 AM CDT Height 175.3 cm (5' 9 ) 03/21/2021 6:32 AM CDT Body Mass Index 27.35 03/21/2021 6:32 AM CDT Plan of Treatment Not on file Insurance [employer] Care Teams Computer Networker Relationship Specialty Start Date End Date Mikel Pavon MD PCP - General Family Medicine 10/17/20
--- OUTSIDE RECORDS SUMMARY | 2024-11-20 09:56 | XMS_ITS | Clinical Summary ---
Author Organization [facility] Address [address] [place] [address] Care Team Providers Care Check Viewer Name Role Phone Mikel Pavon MD Primary Care Provider [phone] Allergies Active Allergy Reactions Criticality Noted Date [...] Trigger index finger of left hand 12/07/2020 Surgical History Surgery Date Site/Laterality Comments HAND SURGERY 08/19/1990 - 08/18/1991 Right lacerationr CARPAL TUNNEL RELEASE 01/17/2021 Left LT.CTR ANKLE FRACTURE SURGERY 08/19/1991 - 08/18/1992 Right repaired w hardware CARPAL TUNNEL RELEASE 03/21/2021 Right RT.OPEN CTR Medical History Medical History Date Comments Hypercholesteremia Family History Medical History Relation Name Comments Heart disease Father Arthritis Mother Relation Name Status Comments Father Mother Social History Tobacco Use Types Packs/Day Years [...] on file 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 [address] [place] [address] [facility] Address: [facility] [address] [place] [address] Care Teams Check Viewer Relationship Specialty Start Date End Date Mikel Pavon MD PCP - General Family Medicine 10/17/20
--- OUTSIDE RECORDS SUMMARY | 2024-11-20 10:20 | XMS_ITS | Clinical Summary ---
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
--- OUTSIDE RECORDS SUMMARY | 2024-11-20 10:20 | XMS_ITS | Clinical Summary ---
Author Organization [facility] Address [address] [place] [address] Care Team Providers Care Superintendent Power Name Role Phone Unavailable Primary Care Provider [...]
--- OUTSIDE RECORDS SUMMARY | 2024-11-20 10:20 | XMS_ITS | Referral Summary ---
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
--- NOTE | 2024-11-20 10:29 | ED_ITS ---
HPI - Headache General Chief Complaint: Headache Stated Complaint: Stabbing pain in head Time Seen by Provider: 11/20/24 09:55 Source: patient Mode of arrival: ambulatory Limitations: no limitations History of Present Illness HPI Narrative: Patient is a 64 y/o male who presents to the ED with c/o ALVA. Patient reports he developed a sharp stabbing pain in his left posterior head around 6:30 a.m. this morning. He states he has never had a headache before. He did not take anything for the pain. He states his boss said he was acting differently at work this morning, was somewhat confused, had difficulty answering questions. Patient then prompted here for further evaluation. He notes a family history of his father dying from a brain aneurysm at the same age. He denies any previous history of migraines. States he feels somewhat lightheaded and fatigued, denies dizziness, vision changes, photophobia, phonophobia, nausea, vomiting, focal weakness or numbness. Related Data Home Medications ?Medication ?Instructions ?Recorded ?Confirmed ?Last Taken ?Type tadalafil 5 mg tablet 5 mg PO DAILY 07/08/24 07/08/24 Unknown History Allergies Allergy/AdvReac Type Severity Reaction Status Date / Time chocolate flavor Allergy Severe Hives Verified 07/08/24 12:14 Penicillins Allergy Severe Hives Verified 07/08/24 12:14 Review of Systems 2 Review of Systems: All systems reviewed & are unremarkable except as noted in HPI. All systems reviewed & are unremarkable except as noted in HPI and below PMFSH Past Medical History Medical History Anemia of chronic disease Smoking greater than 30 pack years Abnormal chest xray Screening for prostate cancer Hyponatremia Elevated WBC count BMI 28.0-28.9,adult BMI 27.0-27.9,adult Hyperlipidemia Surgical History Surgical History History of carpal tunnel release Family History Family History Father Brain aneurysm Meniere disease Mother Sibling No problems noted. Sibling , covid-19 No problems noted. Other Cerebrovascular accident Family history of coronary artery disease Social History Social History Smoking packs per day: 2 Smoking cigarettes per day: 40.0 Years smoked: 50 Smoking pack-years: 100.00 Smoking status: Current every day smoker Tobacco type: cigarettes Second hand tobacco smoke exposure: Yes Alcohol intake: never Substance use: current Substance use type: marijuana Other substance usage details: daily Lack of Transportation: No Lack of Food: Never True Current Housing: I Have Housing Concerned About Future Housing: No Difficulty Paying Gas/Electric Bills: No Difficulty Paying for Meds: No Education: High School Diploma/GED Difficulty w/ Childcare or Family Care: No Living arrangements: with family Additional living arrangements comments: Occupation/Education: occupation Additional occupation/education comments: [employer] Gender identity (if verbalized by the patient): Male Sexual Orientation (if Verbalized by the Patient): Straight or Heterosexual Spiritual care concerns: No Agree to blood products: Yes Exam 2 Narrative: GENERAL: Well appearing, well-nourished, non-toxic, in no acute distress. HEAD: Normocephalic, atraumatic. EYES: PERRL/EOMI, conjunctivae clear bilaterally. No nystagmus. NECK: Supple. No meningeal signs. RESPIRATORY: Airway patent, respirations nonlabored. Clear to auscultation bilaterally, no rales, rhonchi, wheezing. CARDIOVASCULAR: Regular rate and rhythm without murmurs, rubs, or gallops. Radial pulses 2+ and equal bilaterally. MUSCULOSKELETAL: Moves all extremities. No gross deformities. SKIN: Warm, dry, normal color. No rashes. NEURO: A&O X3. Speech clear. Follows commands. CN II-XII intact. Sensation grossly intact. Steady gait. No ataxic movements. Strength 5/5 in upper and lower extremities bilaterally. Pxeo-aj-rkyw testing intact bilaterally. No pronator drift. Equal wax ball knock out worker strength bilaterally. PSYCHIATRIC: Appropriate mood and affect. Normal interaction. Course Vital Signs Vital signs: Vital Signs Temperature 98.0 F 11/20/24 09:48 Pulse Rate 77 11/20/24 09:48 Respiratory Rate 16 11/20/24 09:48 Blood Pressure 121/82 11/20/24 09:48 Pulse Oximetry 98 11/20/24 09:48 Oxygen Delivery Room Air 11/20/24 09:48 Temperature 97.8 F 11/20/24 13:00 Pulse Rate 68 11/20/24 13:00 Respiratory Rate 16 11/20/24 13:00 Blood Pressure 116/68 11/20/24 13:00 Pulse Oximetry 98 11/20/24 13:00 Oxygen Delivery Room Air 11/20/24 09:48 MDM - Headache MDM Narrative Medical decision making narrative: Patient presented to ED with left-sided headache onset this morning. He reports no previous history of headaches or migraines whatsoever. History of brain aneurysm in father. Vital signs are stable upon arrival. Patient is in no acute distress. He is neurologically intact upon my evaluation. No focal deficits. CTA of brain/carotids was ordered and obtained to rule out intracranial pathology. CTA negative. No abnormalities noted, no LVO, aneurysm or other intracranial abnormalities. Laboratory studies are otherwise unremarkable. Patient given fluids and Tylenol. Headache is improved. He states he is ready to be discharged. Patient has voiced aggravation as to why he has been in the ER so long, repeatedly calling out to nursing wanting to leave. Does not want any further w/u or medications. Recommended close follow-up with PCP for further evaluation. Discussed return precautions. He agrees with plan. Discharged in stable condition. Remained neurologically intact at time of D/C. Medical Records Attestation: I reviewed the patient's medical records. Lab Data Attestation: I reviewed the patient's lab results. 11/20/24 10:31 11/20/24 10:37 Labs: Lab Results 11/20/24 11/20/24 11/20/24 Range/Units 10:31 10:32 10:37 WBC 6.6 (4.5-10.0) K/mm3 RBC 3.59 L (4.6-6.20) M/mm3 Hgb 11.8 L (14.0-18.0) g/dL Hct 35.6 L (42.0-52.0) % MCV 99.2 (80-100) fl MCH 32.9 (26-34) pg MCHC 33.1 (32-36) g/dl RDW 12.6 (11.5-14.5) % Plt Count 144 L (150-375) k/mm3 MPV 10.7 H (7.4-10.4) fl Immature Gran % (Auto) 0.3 (0-0.5) % Neut % (Auto) 58.8 (45.5-73.1) % Lymph % (Auto) 32.5 (18.3-44.2) % Blair % (Auto) 5.2 (2.6-8.5) % Eos % (Auto) 2.7 (0-4.4) % Baso % (Auto) 0.5 (0.2-1.2) % Lymph # (Auto) 2.13 (0.9-3.2) K/mm3 Blair # (Auto) 0.3 (0.1-0.6) K/mm3 Eos # (Auto) 0.2 (0-0.3) K/mm3 Baso # (Auto) 0.0 (0.0-0.1) K/mm3 Abs Immat Gran (auto) 0.02 (0.00-0.031) K/mm3 Absolute Neuts (auto) 3.9 (1.3-6.7) K/mm3 Absolute Nucleated RBC 0.000 (0.0-0.012) K/mm3 Nucleated RBC % 0.0 (0.0-0.2) % PT 14.9 H (11.1-14.7) Seconds INR 1.1 APTT 27.9 (22.3-36.8) Seconds Sodium 138 (137-145) mmol/L Potassium 4.0 (3.4-5.0) mmol/L Chloride 105 (98-107) mmol/L Carbon Dioxide 24 (22-30) mmol/L Anion Gap 9 (4-12) mmol/L BUN 16 (9-20) mg/dL Creatinine 0.80 0.80 (0.7-1.3) mg/dL Estim Creat Clear Calc 80 80 ml/min Estimated GFR > 60 > 60 (59 - ) Glucose 111 H (65-110) mg/dL Calcium 8.9 (8.4-10.2) mg/dL Imaging Data Attestation: I personally reviewed and interpreted this imaging study as follows: Radiologist's impression: ITS Impressions Head/Neck CTA 11/20/24 11:25 Impression: No significant abnormality. Discharge Plan Discharge Clinical Impression: Headache Qualifiers: Headache type: unspecified Headache chronicity pattern: acute headache I ntractability: not intractable Qualified Code(s): R51.9 - Headache, unspecified Patient Disposition: Home, Self-Care Condition: Stable Instructions: Antibiotic Form, Acute Headache (ED) Additional Instructions: Your imaging here was reassuring. Continue Tylenol and ibuprofen as needed for headache. Follow-up with your primary care doctor for further evaluation. Return to the ED if you experience worsening or severe pain, confusion, passing out, severe dizziness or lightheadedness, unable to keep down food or drink, vision changes, or any other symptoms of concern. Patient Language: Kinyarwanda Prescriptions: No Action tadalafil 5 mg tablet 5 mg PO DAILY rosuvastatin 20 mg tablet See Rx Instructions .ROUTE .COMPLEX Qty: 90 3RF Dose Instruction: TAKE 1 TABLET BY MOUTH EVERY DAY Rx Instructions: TAKE 1 TABLET BY MOUTH EVERY DAY Follow-up/Referrals: Mikel Pavon MD [Primary Care Provider] - Time of Disposition: 13:11
[2024-11-20 10:38] LABS: Estimated CRCL calculation 80 ml/min; Estimated Glomerular Filt Rate > 60
[2024-11-20 10:39] LABS: Basophils Percent Auto 0.5 % (0.2-1.2); Eosinophils Absolute Auto 0.2 K/mm3 (0-0.3); Eosinophils Percent Auto 2.7 % (0-4.4); Hematocrit 35.6 % (42.0-52.0); Hemoglobin 11.8 g/dL (14.0-18.0); Immature Granulocyte Absolute 0.02 K/mm3 (0.00-0.031); Immature Granulocyte Percent A 0.3 % (0-0.5); Lymphocytes Absolute Auto 2.13 K/mm3 (0.9-3.2); Lymphocytes Percent Auto 32.5 % (18.3-44.2); Mean Corpuscular HGB Conc 33.1 g/dl (32-36); Mean Corpuscular Hemoglobin 32.9 pg (26-34); Mean Corpuscular Volume 99.2 fl (80-100); Mean Platelet Volume 10.7 fl (7.4-10.4); Monocytes Absolute Auto 0.3 K/mm3 (0.1-0.6); Monocytes Percent Auto 5.2 % (2.6-8.5); Neutrophils Absolute Auto 3.9 K/mm3 (1.3-6.7); Neutrophils Percent Auto 58.8 % (45.5-73.1); Platelet Count Result 144 k/mm3 (150-375); Red Blood Count 3.59 M/mm3 (4.6-6.20); Red Cell Distribution Width 12.6 % (11.5-14.5); White Blood Count 6.6 K/mm3 (4.5-10.0)
[2024-11-20 10:51] LABS: INR 1.1; Partial Thromboplastin Time 27.9 Seconds (22.3-36.8); Prothrombin Time 14.9 Seconds (11.1-14.7)
[2024-11-20] MEDS: ACETAMINOPHEN 500 MG TABLET 1000 MG PO (10:52)
[2024-11-20] MEDS: SODIUM CHLORIDE 0.9% IV 1,000 ML 999 ML IV CONT (10:53)
[2024-11-20 11:52] LABS: Blood Urea Nitrogen 16 mg/dL (9-20); Calcium 8.9 mg/dL (8.4-10.2); Carbon Dioxide 24 mmol/L (22-30); Estimated CRCL calculation 80 ml/min; Estimated Glomerular Filt Rate > 60; Glucose 111 mg/dL (65-110); Sodium 138 mmol/L (137-145)
[2024-11-20 12:05] LABS: Anion Gap 9 mmol/L (4-12); Chloride 105 mmol/L (98-107)
== END 2024-11-20 13:20 | disposition home or self-care (01) ==
PROVIDERS: Emergency Provider Physician Assistant; PCP Family Medicine
DX: R51.9 Headache, unspecified (principal); E78.5 Hyperlipidemia, unspecified; F17.210 Nicotine dependence, cigarettes, uncomplicated
CPT/HCPCS: 36415; 70496; 70498; 80048; 85025; 85610; 85730; 96360; 99284; A9270; J7030; Q9967